=== PATIENT | male | born 1990 | race Two or more races ===

== ENCOUNTER 2020-04-13 11:27 | Outpatient (CLI) | payer OTHER | END 2020-04-13 11:32 | disposition home or self-care (01) | LOC: LAB 11:27 | PROVIDERS: ATTEND General Practice | DX: J11.1 Influenza due to unidentified influenza virus with other respiratory manifestations (principal); Z11.59 Encounter for screening for other viral diseases; R53.81 Other malaise; R50.9 Fever, unspecified ==